=== PATIENT | female | born 1985 | race Two or more races ===

== ENCOUNTER 2016-10-30 08:21 | Emergency (ER) | payer MEDICAID ==
[~2016-10-30] VITALS: Ht 157.5 cm; Wt 76.2 kg
[~2016-10-30 08:21] MED LIST: METF500T PO
[2016-10-30 09:35] VITALS: BP 128/71
== END 2016-10-30 10:34 | disposition home or self-care (01) ==
LOC: ER 08:21
DX: N73.9 Female pelvic inflammatory disease, unspecified (principal); J45.909 Unspecified asthma, uncomplicated; E11.9 Type 2 diabetes mellitus without complications; Z87.442 Personal history of urinary calculi; Z90.49 Acquired absence of other specified parts of digestive tract; Z98.890 Other specified postprocedural states; Z90.89 Acquired absence of other organs
CPT/HCPCS: 10060

== ENCOUNTER 2016-11-02 09:43 | Emergency (ER) | payer MEDICAID ==
[~2016-11-02] VITALS: Ht 157.5 cm; Wt 76.2 kg
[2016-11-02 10:11] VITALS: BP 129/83
== END 2016-11-02 10:23 | disposition home or self-care (01) ==
LOC: ER 09:43
DX: N73.9 Female pelvic inflammatory disease, unspecified (principal); Z48.01 Encounter for change or removal of surgical wound dressing; J45.909 Unspecified asthma, uncomplicated; E11.9 Type 2 diabetes mellitus without complications; Z79.899 Other long term (current) drug therapy

== ENCOUNTER 2018-07-06 18:57 | Emergency (ER) | payer MEDICAID ==
[~2018-07-06] VITALS: Ht 157.5 cm; Wt 84.4 kg
[2018-07-06 20:13] LABS: Urine Bacteria FEW /hpf (None Seen); Urine Blood Negative /uL (Negative); Urine Specific Gravity 1.006 (1.001-1.035); Urine WBC 3 /hpf (0 - 5)
[2018-07-06 20:14] LABS: Basophils # (auto) 0 uL; Basophils % (auto) 0.3 % (0.0-2.0); Eosinophils # (auto) 0.1 uL; Eosinophils % (auto) 1.2 % (0.0-7.0); Hemoglobin 13.3 g/dL (12.2-16.2); Lymphocytes # (auto) 1.6 uL; Lymphocytes % (auto) 15.8 % (10.0-50.0); Mean Corpuscular Hgb Conc. 34.2 g/dL (32.0-36.0); Mean Corpuscular Volume 87.9 fL (80.0-100.0); Monocytes # (auto) 0.4 uL; Monocytes % (auto) 3.9 % (0.0-12.0); Neutrophils # (auto) 7.8 uL; Neutrophils % (auto) 78.8 % (37.0-80.0); Platelet Count (auto) 328 10^3/uL (140-450); Red Blood Cells 4.44 10^6/uL (4.0-5.20); Red Cell Distribution Width 13.6 % (11.8-14.3); White Blood Cell 9.9 10^3/uL (4.4-10.8)
[2018-07-06 20:20] LABS: Albumin 3.7 g/dL (3.4-5.0); BUN/Creatinine Ratio 12.7; Calcium 9.2 mg/dL (8.5-10.1); Potassium 3.5 mmol/L (3.5-5.1)
[2018-07-06 20:23] LABS: Bilirubin, Total 0.3 mg/dL (0.2-1.0); Total Protein 8.7 g/dL (6.4-8.2)
[2018-07-07] MEDS ORDERED: CEPHALEXIN 250 MG CAP PO ONE (01:45)
[2018-07-07 02:05] VITALS: BP 115/62
== END 2018-07-07 04:40 | disposition home or self-care (01) ==
LOC: ER 18:57
DX: O99.341 Other mental disorders complicating pregnancy, first trimester (principal); O26.891 Other specified pregnancy related conditions, first trimester; F41.9 Anxiety disorder, unspecified; J45.909 Unspecified asthma, uncomplicated; O24.911 Unspecified diabetes mellitus in pregnancy, first trimester; Z3A.09 9 weeks gestation of pregnancy; Z90.49 Acquired absence of other specified parts of digestive tract
CPT/HCPCS: 36415; 76801; 76817; 80053; 81001; 81025; 84702; 85025

== ENCOUNTER → 2018-07-13 | Outpatient (CLI) | payer MEDICAID ==
[2018-07-13 13:51] LABS: Basophils # (auto) 0 uL; Basophils % (auto) 0.4 % (0.0-2.0); Eosinophils # (auto) 0.1 uL; Hematocrit 34.8 % (36.0-46.0); Hemoglobin 11.9 g/dL (12.2-16.2); Lymphocytes % (auto) 33.9 % (10.0-50.0); Mean Corpuscular Hemoglobin 30.2 pg (28.0-32.0); Mean Corpuscular Hgb Conc. 34.2 g/dL (32.0-36.0); Mean Corpuscular Volume 88.4 fL (80.0-100.0); Monocytes # (auto) 0.3 uL; Monocytes % (auto) 4.7 % (0.0-12.0); Neutrophils # (auto) 3.4 uL; Platelet Count (auto) 319 10^3/uL (140-450); Red Blood Cells 3.93 10^6/uL (4.0-5.20); Red Cell Distribution Width 13.6 % (11.8-14.3); White Blood Cell 5.8 10^3/uL (4.4-10.8)
[2018-07-13 14:18] LABS: Alcohol, Urine < 3.0 mg/dL (0-5); Amphetamine Screen, Urine NEGATIVE (NEGATIVE); Barbiturate Scree,Urine NEGATIVE (NEGATIVE); Benzodiazephine Screen, Urine NEGATIVE (NEGATIVE); Cannabinoid Screen, Urine NEGATIVE (NEGATIVE); Cocaine Screen, Urine NEGATIVE (NEGATIVE); Opiate Scree,Urine NEGATIVE (NEGATIVE); Phencyclidine Screen, Urine NEGATIVE (NEGATIVE)
[2018-07-13 14:33] LABS: RUBELLA Positive
== END | disposition home or self-care (01) ==
LOC: LAB 11:16
PROVIDERS: ATTEND Specialist
DX: O99.810 Abnormal glucose complicating pregnancy (principal); Z20.2 Contact with and (suspected) exposure to infections with a predominantly sexual mode of transmission; Z3A.11 11 weeks gestation of pregnancy
CPT/HCPCS: 36415; 80307; 82951; 83036; 85025; 86703; 86762; 86850; 86900; 86901; 87086; 87340

== ENCOUNTER → 2018-07-27 | Outpatient (CLI) | payer MEDICAID | END | disposition home or self-care (01) | LOC: LAB 12:57 | PROVIDERS: ATTEND Specialist | DX: O10.911 Unspecified pre-existing hypertension complicating pregnancy, first trimester (principal); Z3A.13 13 weeks gestation of pregnancy | CPT/HCPCS: 36415; 82565 ==

== ENCOUNTER → 2018-09-27 | Outpatient (CLI) | payer MEDICAID | END | disposition home or self-care (01) | LOC: LAB 10:32 | PROVIDERS: ATTEND Specialist | DX: O99.810 Abnormal glucose complicating pregnancy (principal); Z3A.21 21 weeks gestation of pregnancy | CPT/HCPCS: 36415; 83036 ==

== ENCOUNTER → 2018-10-24 | Outpatient (CLI) | payer MEDICAID ==
[2018-10-24 11:34] LABS: Basophils # (auto) 0 uL; Basophils % (auto) 0.3 % (0.0-2.0); Eosinophils # (auto) 0.1 uL; Eosinophils % (auto) 0.8 % (0.0-7.0); Hematocrit 36.1 % (36.0-46.0); Hemoglobin 12.4 g/dL (12.2-16.2); Lymphocytes % (auto) 26.4 % (10.0-50.0); Mean Corpuscular Hemoglobin 30.4 pg (28.0-32.0); Mean Corpuscular Hgb Conc. 34.4 g/dL (32.0-36.0); Mean Corpuscular Volume 88.4 fL (80.0-100.0); Monocytes # (auto) 0.3 uL; Monocytes % (auto) 4.3 % (0.0-12.0); Neutrophils # (auto) 5.1 uL; Neutrophils % (auto) 68.2 % (37.0-80.0); Platelet Count (auto) 297 10^3/uL (140-450); Red Blood Cells 4.08 10^6/uL (4.0-5.20); Red Cell Distribution Width 13.6 % (11.8-14.3); White Blood Cell 7.5 10^3/uL (4.4-10.8)
== END | disposition home or self-care (01) ==
LOC: LAB 11:06
PROVIDERS: ATTEND Specialist
DX: Z34.82 Encounter for supervision of other normal pregnancy, second trimester (principal); Z3A.24 24 weeks gestation of pregnancy
CPT/HCPCS: 36415; 85025

== ENCOUNTER → 2018-11-14 | Outpatient (CLI) | payer MEDICAID | END | disposition home or self-care (01) | LOC: LAB 10:52 | PROVIDERS: ATTEND Specialist | DX: Z34.83 Encounter for supervision of other normal pregnancy, third trimester (principal); Z3A.28 28 weeks gestation of pregnancy | CPT/HCPCS: 36415; 83036 ==

== ENCOUNTER 2018-11-30 10:10 | Observation (INO) | payer MEDICAID | END 2018-11-30 12:37 | disposition home or self-care (01) | DRG 566 | LOC: LDRP 10:10 | PROVIDERS: ADMIT Specialist; ATTEND Specialist | DX: O24.419 Gestational diabetes mellitus in pregnancy, unspecified control (principal); Z3A.30 30 weeks gestation of pregnancy | CPT/HCPCS: 59025; 76818; 81002; G0378 ==

== ENCOUNTER 2018-12-05 16:20 | Observation (INO) | payer MEDICAID ==
[2018-12-05] MEDS ORDERED: PREN-96 PO (17:35)
[2018-12-05] MEDS ORDERED: GLYB5TAB8 PO (17:35)
== END 2018-12-05 18:35 | disposition home or self-care (01) | DRG 566 ==
LOC: LDRP 16:20
PROVIDERS: ADMIT Specialist; ATTEND Specialist
DX: O24.419 Gestational diabetes mellitus in pregnancy, unspecified control (principal); Z3A.31 31 weeks gestation of pregnancy
CPT/HCPCS: 59025; 76818; 81002; 82948; 82962; G0378

== ENCOUNTER 2018-12-08 11:28 | Observation (INO) | payer MEDICAID ==
[~2018-12-08 11:28] MED LIST changes: +GLYB5TAB8 PO; -METF500T PO; +PREN-96 PO
[2018-12-08] MEDS ORDERED: TERBUTALINE SULFATE 1 MG/ML 1ML VIAL SC ONE (12:45)
[2018-12-08] MEDS ORDERED: NIFEdipine 10 MG CAP PO ONE (13:00)
== END 2018-12-08 15:05 | disposition home or self-care (01) | DRG 566 ==
LOC: LDRP 11:28
PROVIDERS: ADMIT Obstetrics & Gynecology; ATTEND Obstetrics & Gynecology
DX: O24.419 Gestational diabetes mellitus in pregnancy, unspecified control (principal); O62.9 Abnormality of forces of labor, unspecified; Z3A.31 31 weeks gestation of pregnancy
CPT/HCPCS: 59025; 76818; 81002; 82948; 82962; G0378

== ENCOUNTER 2018-12-12 15:52 | Observation (INO) | payer MEDICAID | END 2018-12-12 18:30 | disposition still patient (30) | DRG 566 | LOC: LDRP 15:52 | PROVIDERS: ADMIT Specialist; ATTEND Specialist | DX: O24.419 Gestational diabetes mellitus in pregnancy, unspecified control (principal); J45.909 Unspecified asthma, uncomplicated; O99.513 Diseases of the respiratory system complicating pregnancy, third trimester; Z3A.32 32 weeks gestation of pregnancy | CPT/HCPCS: 59025; 76818; 81002; 82948; 82962; G0378 ==

== ENCOUNTER 2018-12-15 10:46 | Observation (INO) | payer MEDICAID | END 2018-12-15 12:35 | disposition home or self-care (01) | DRG 566 | LOC: LDRP 10:46 | PROVIDERS: ADMIT Specialist; ATTEND Specialist | DX: O24.419 Gestational diabetes mellitus in pregnancy, unspecified control (principal); Z3A.32 32 weeks gestation of pregnancy | CPT/HCPCS: 59025; 76818; 81002; 82948; 82962; G0378 ==

== ENCOUNTER 2018-12-19 15:45 | Observation (INO) | payer MEDICAID | END 2018-12-19 17:20 | disposition home or self-care (01) | DRG 566 | LOC: LDRP 15:45 | PROVIDERS: ADMIT Obstetrics & Gynecology; ATTEND Obstetrics & Gynecology | DX: O24.410 Gestational diabetes mellitus in pregnancy, diet controlled (principal); O60.03 Preterm labor without delivery, third trimester; O26.893 Other specified pregnancy related conditions, third trimester; N89.8 Other specified noninflammatory disorders of vagina; Z3A.33 33 weeks gestation of pregnancy | CPT/HCPCS: 59025; 76818; 81002; 82948; 82962; G0378 ==

== ENCOUNTER 2018-12-21 15:50 | Observation (INO) | payer MEDICAID | END 2018-12-21 17:35 | disposition home or self-care (01) | DRG 566 | LOC: LDRP 15:50 | PROVIDERS: ADMIT Obstetrics & Gynecology; ATTEND Obstetrics & Gynecology | DX: O24.419 Gestational diabetes mellitus in pregnancy, unspecified control (principal); Z3A.33 33 weeks gestation of pregnancy | CPT/HCPCS: 59025; 76818; 81002; 82948; 82962; G0378 ==

== ENCOUNTER 2018-12-26 11:22 | Observation (INO) | payer MEDICAID | END 2018-12-26 13:10 | disposition home or self-care (01) | DRG 566 | LOC: LDRP 11:22 | PROVIDERS: ADMIT Obstetrics & Gynecology; ATTEND Obstetrics & Gynecology | DX: O24.419 Gestational diabetes mellitus in pregnancy, unspecified control (principal); Z3A.34 34 weeks gestation of pregnancy | CPT/HCPCS: 59025; 76818; 81002; 82948; G0378 ==

== ENCOUNTER 2018-12-28 15:50 | Observation (INO) | payer MEDICAID ==
[2018-12-29] MEDS ORDERED: NIF10C GT (11:48)
[2018-12-30] MEDS ORDERED: LABE200T18 PO (15:09)
== END 2018-12-28 17:45 | disposition home or self-care (01) | DRG 566 ==
LOC: LDRP 15:50
PROVIDERS: ADMIT Obstetrics & Gynecology; ATTEND Obstetrics & Gynecology
DX: O24.419 Gestational diabetes mellitus in pregnancy, unspecified control (principal); Z3A.34 34 weeks gestation of pregnancy
CPT/HCPCS: 59025; 76818; 81002; 82962; G0378

== ENCOUNTER 2018-12-29 10:05 | Observation (INO) | payer MEDICAID ==
[~2018-12-29] VITALS: Ht 157.5 cm; Wt 81.6 kg
[2018-12-29] MEDS ORDERED: BETAMETHASONE ACET (6MG/ML) 5ML VIAL IM ONE (11:15)
[2018-12-29] MEDS ORDERED: NIF10C GT (11:48)
[2018-12-29 12:02] LABS: Basophils # (auto) 0 uL; Basophils % (auto) 0.3 % (0.0-2.0); Eosinophils # (auto) 0 uL; Eosinophils % (auto) 0.6 % (0.0-7.0); Hematocrit 37.7 % (36.0-46.0); Hemoglobin 12.8 g/dL (12.2-16.2); Lymphocytes # (auto) 2.8 uL; Lymphocytes % (auto) 39.9 % (10.0-50.0); Mean Corpuscular Hemoglobin 30.2 pg (28.0-32.0); Mean Corpuscular Hgb Conc. 33.8 g/dL (32.0-36.0); Mean Corpuscular Volume 89.3 fL (80.0-100.0); Monocytes # (auto) 0.3 uL; Monocytes % (auto) 4.9 % (0.0-12.0); Neutrophils # (auto) 3.8 uL; Neutrophils % (auto) 54.3 % (37.0-80.0); Nucleated Red Blood Cells % 0.1 %; Platelet Count (auto) 218 10^3/uL (140-450); Red Blood Cells 4.22 10^6/uL (4.0-5.20); Red Cell Distribution Width 14.2 % (11.8-14.3)
[2018-12-29 12:11] LABS: INR 0.81 (0.9-1.15); Partial Thromboplastin Time 26.1 sec (23.78-33.04); Prothrombin Time 8.8 sec (9.27-12.13)
[2018-12-29 13:07] LABS: Alanine Aminotransferase 17 U/L (13-56); Albumin 2.7 g/dL (3.4-5.0); Alkaline Phosphatase 148 U/L (45-117); Anion Gap 8 (5-15); Aspartate Aminotransferase 18 U/L (15-37); BUN/Creatinine Ratio 18.1; Bilirubin, Total 0.1 mg/dL (0.2-1.0); Blood Urea Nitrogen 13 mg/dL (7-18); Calcium 9.4 mg/dL (8.5-10.1); Carbon Dioxide 24 mmol/L (21-32); Chloride 106 mmol/L (98-107); GFR African American 122 mL/min; GFR Non-African American 100 mL/min; Glucose 74 mg/dL (74-106); Sodium 138 mmol/L (136-145); Total Protein 7.5 g/dL (6.4-8.2)
[2018-12-29 13:08] LABS: Uric Acid 6.2 mg/dL (2.6-6.0)
[2018-12-30] MEDS ORDERED: LABE200T18 PO (15:09)
== END 2018-12-29 13:30 | disposition home or self-care (01) | DRG 566 ==
LOC: LDRP 10:05
PROVIDERS: ADMIT Specialist; ATTEND Specialist
DX: O24.419 Gestational diabetes mellitus in pregnancy, unspecified control (principal); O36.8130 Decreased fetal movements, third trimester, not applicable or unspecified; Z3A.34 34 weeks gestation of pregnancy
CPT/HCPCS: 36415; 59025; 76805; 80053; 81002; 82962; 84550; 85025; 85610; 85730; 96372; G0378; J0702

== ENCOUNTER 2018-12-30 14:00 | Inpatient (IN) | payer MEDICAID | END 2018-12-30 16:25 | disposition home or self-care (01) | LOC: LDRP 14:00 ==

== ENCOUNTER 2018-12-31 07:00 | Observation (INO) | payer MEDICAID ==
[~2018-12-31] VITALS: Ht 30.5 cm; Wt 0.5 kg
[~2018-12-31 07:00] MED LIST changes: +LABE200T18 PO; +NIF10C GT
[2018-12-31] MEDS ORDERED: InsuLIN REG 1unit/0.01ml Soln (100units/ml) SC ONE (08:00)
[2018-12-31 08:03] LABS: Urine Bacteria NONE SEEN /hpf (None Seen); Urine Blood Negative /uL (Negative); Urine Specific Gravity 1.017 (1.001-1.035); Urine WBC 4 /hpf (0 - 5)
[2018-12-31 08:04] LABS: Basophils # (auto) 0 uL; Eosinophils # (auto) 0 uL; Hematocrit 35.7 % (36.0-46.0); Hemoglobin 12.1 g/dL (12.2-16.2); Lymphocytes # (auto) 1.7 uL; Lymphocytes % (auto) 22.2 % (10.0-50.0); Mean Corpuscular Hemoglobin 30.8 pg (28.0-32.0); Mean Corpuscular Hgb Conc. 34.1 g/dL (32.0-36.0); Mean Corpuscular Volume 90.3 fL (80.0-100.0); Monocytes # (auto) 0.3 uL; Monocytes % (auto) 3.5 % (0.0-12.0); Neutrophils # (auto) 5.6 uL; Neutrophils % (auto) 74.3 % (37.0-80.0); Nucleated Red Blood Cells % 0.2 %; Platelet Count (auto) 205 10^3/uL (140-450); Red Blood Cells 3.95 10^6/uL (4.0-5.20); Red Cell Distribution Width 14.6 % (11.8-14.3); White Blood Cell 7.5 10^3/uL (4.4-10.8)
[2018-12-31 08:13] LABS: Albumin 2.7 g/dL (3.4-5.0); Calcium 9.2 mg/dL (8.5-10.1); Potassium 4.2 mmol/L (3.5-5.1); Uric Acid 6.6 mg/dL (2.6-6.0)
[2018-12-31 08:14] LABS: INR 0.84 (0.9-1.15); Prothrombin Time 9.1 sec (9.27-12.13)
[2018-12-31 08:17] LABS: BUN/Creatinine Ratio 24.4; Bilirubin, Total 0.2 mg/dL (0.2-1.0); Total Protein 7.5 g/dL (6.4-8.2)
== END 2018-12-31 11:10 | disposition home or self-care (01) | DRG 566 ==
LOC: LDRP 07:00
PROVIDERS: ADMIT Specialist; ATTEND Specialist
DX: O24.419 Gestational diabetes mellitus in pregnancy, unspecified control (principal); O13.3 Gestational [pregnancy-induced] hypertension without significant proteinuria, third trimester; Z3A.35 35 weeks gestation of pregnancy
CPT/HCPCS: 36415; 59025; 76818; 80053; 81001; 81002; 82962; 84550; 85025; 85610; 85730; 96372; G0378; J1815

== ENCOUNTER 2021-04-12 21:41 | Emergency (ER) | payer MEDICAID ==
[~2021-04-12] VITALS: Ht 157.5 cm; Wt 80.7 kg
[~2021-04-12 21:41] MED LIST changes: -LABE200T18 PO; +LABE200T7 PO
[2021-04-12 21:42] VITALS: BP 143/92
== END 2021-04-13 00:56 | disposition home or self-care (01) ==
LOC: ER 21:41
DX: N75.0 Cyst of Bartholin's gland (principal); N76.4 Abscess of vulva; E66.9 Obesity, unspecified; Z68.32 Body mass index [BMI] 32.0-32.9, adult; E11.9 Type 2 diabetes mellitus without complications; J45.909 Unspecified asthma, uncomplicated; Z90.49 Acquired absence of other specified parts of digestive tract; Z90.89 Acquired absence of other organs; Z79.899 Other long term (current) drug therapy
CPT/HCPCS: 56420

== ENCOUNTER 2021-12-10 07:57 | Emergency (ER) | payer MEDICAID ==
[~2021-12-10] VITALS: Ht 157.5 cm; Wt 78.0 kg
[2021-12-10 08:02] VITALS: BP 145/93
[2021-12-10] MEDS ORDERED: KETOROLAC TROMETH 60MG/2ML VIAL IM ONE (08:15)
[2021-12-10] MEDS ORDERED: METH750T22 PO (08:54)
[2021-12-10] MEDS ORDERED: IBUP800T27 PO (08:54)
== END 2021-12-10 08:59 | disposition home or self-care (01) ==
LOC: ER 07:57
DX: S29.011A Strain of muscle and tendon of front wall of thorax, initial encounter (principal); J45.909 Unspecified asthma, uncomplicated; E11.9 Type 2 diabetes mellitus without complications; Z90.49 Acquired absence of other specified parts of digestive tract; X50.1XXA Overexertion from prolonged static or awkward postures, initial encounter; Y93.39 Activity, other involving climbing, rappelling and jumping off; Y92.89 Other specified places as the place of occurrence of the external cause; Y99.8 Other external cause status
CPT/HCPCS: 71101; 96372; 99283; J1885

== ENCOUNTER 2023-04-27 01:35 | Emergency (ER) | payer MEDICAID ==
[~2023-04-27] VITALS: Ht 157.5 cm; Wt 84.0 kg
[~2023-04-27 01:35] MED LIST changes: +IBUP-1456 PO; +METH-1182 PO
[2023-04-27] MEDS ORDERED: ERY05OO OP (04:47)
[2023-04-27 05:17] VITALS: BP 112/88; PULSE 97; RESP 18; TEMP 98.1; O2SAT 97
== END 2023-04-27 05:23 | disposition home or self-care (01) ==
LOC: ER 01:35
DX: H10.33 Unspecified acute conjunctivitis, bilateral (principal); J45.909 Unspecified asthma, uncomplicated; E11.9 Type 2 diabetes mellitus without complications; F41.9 Anxiety disorder, unspecified; Z90.49 Acquired absence of other specified parts of digestive tract

== ENCOUNTER 2023-08-30 09:56 | Emergency (ER) | payer MEDICAID ==
[~2023-08-30] VITALS: Ht 157.5 cm; Wt 82.3 kg
[~2023-08-30 09:56] MED LIST changes: +ERY05OO OP
[2023-08-30 13:01] VITALS: BP 130/85; PULSE 104; RESP 16; TEMP 98.6; O2SAT 97
[2023-08-30] MEDS ORDERED: CEPH500C PO (13:32)
== END 2023-08-30 14:51 | disposition home or self-care (01) ==
LOC: ER 09:56
DX: N76.4 Abscess of vulva (principal); J45.909 Unspecified asthma, uncomplicated; E11.9 Type 2 diabetes mellitus without complications; Z90.49 Acquired absence of other specified parts of digestive tract

== ENCOUNTER 2023-10-29 20:10 | Emergency (ER) | payer MEDICAID ==
[~2023-10-29] VITALS: Ht 157.5 cm; Wt 83.7 kg
[~2023-10-29 20:10] MED LIST changes: +CEPH500C PO
[2023-10-29 22:33] VITALS: BP 148/90; PULSE 100; RESP 18; TEMP 98.8; O2SAT 99
== END 2023-10-29 22:35 | disposition home or self-care (01) ==
LOC: ER 20:10
DX: H11.31 Conjunctival hemorrhage, right eye (principal); J45.909 Unspecified asthma, uncomplicated; F41.9 Anxiety disorder, unspecified; E11.9 Type 2 diabetes mellitus without complications; K80.20 Calculus of gallbladder without cholecystitis without obstruction; Z98.890 Other specified postprocedural states; Z79.899 Other long term (current) drug therapy
CPT/HCPCS: 70450

== ENCOUNTER 2024-07-23 16:30 | Emergency (ER) | payer MEDICAID ==
[~2024-07-23] VITALS: Ht 157.5 cm; Wt 82.2 kg
[~2024-07-23 16:30] MED LIST changes: +LABE200T33 PO; -LABE200T7 PO; -NIF10C GT; +NIFE10CA52 GT
[2024-07-23] MEDS: FLUORESCEIN SOD OPTH TEST STRIP EACHEYE ONE (17:21)
[2024-07-23] MEDS: TETRACAINE HCL 0.5% OPTH(EYE) SOLN 4ML EACHEYE ONE (17:21)
[2024-07-23] MEDS ORDERED: ERY05OO OP (17:28)
[2024-07-23 17:34] VITALS: BP 165/88; PULSE 95; RESP 15; TEMP 98.5; O2SAT 98
== END 2024-07-23 17:33 | disposition home or self-care (01) ==
LOC: ER 16:34
DX: S05.02XA Injury of conjunctiva and corneal abrasion without foreign body, left eye, initial encounter (principal); J45.909 Unspecified asthma, uncomplicated; E11.9 Type 2 diabetes mellitus without complications; Z79.899 Other long term (current) drug therapy; Z90.49 Acquired absence of other specified parts of digestive tract; Z90.710 Acquired absence of both cervix and uterus; Z98.890 Other specified postprocedural states; X58.XXXA Exposure to other specified factors, initial encounter; Y93.89 Activity, other specified; Y92.89 Other specified places as the place of occurrence of the external cause; Y99.8 Other external cause status

== ENCOUNTER 2025-06-27 18:53 | Emergency (ER) | payer MEDICAID ==
[~2025-06-27] VITALS: Ht 157.5 cm; Wt 84.0 kg
[2025-06-27 18:54] VITALS: TEMP 98.1
[2025-06-27 18:57] VITALS: BP 150/99; PULSE 98; O2SAT 99
[2025-06-27] MEDS: TETRACAINE HCL 0.5% OPTH(EYE) SOLN 4ML LEFTEYE ONE (19:15)
--- NOTE | 2025-06-27 19:23 | ED.PDOC ---
Eye-HPI HPI Comments This patient is a pleasant but obese 39-year-old female who came to ER for eye problems. Patient does have history of diabetes. States she was at home earlier, when she felt a popping sensation on the medial aspect of her left eye. Noted reddish discoloration of her left and right eyes. Denies any pain. Denies any blurring of vision. Denies any recent trauma. Vital signs were stable. Patient states the pain is reduced significantly at time of evaluation. Chief Complaint: Eye Problem Time Seen by MD: 19:22 Primary Care Provider: SUMAN Reviewed Notes: Nurses Notes Allergies: Coded Allergies: NO KNOWN ALLERGIES (Unverified , 09/16/15) Home Meds Active Scripts Erythromycin (Erythromycin) 5 Mg/Gm Oin, 1 APPLIC OP TID for 10 Days, #5 GRAMS 0 Refills Prov:ZULEIKA SINHA BREAD WRAPPER OPERATOR 07/23/24 Cephalexin Monohydrate (Cephalexin) 500 Mg Cap, 500 MG PO QID for 5 Days, #20 CAP Prov:ROCK ORTIZ PAC 10/07/23 Cephalexin Monohydrate (Cephalexin) 500 Mg Cap, 500 MG PO QID for 5 Days, #20 CAP 0 Refills Prov:ZULEIKA SINHA BREAD WRAPPER OPERATOR 08/30/23 Erythromycin (Erythromycin) 5 Mg/Gm Oin, 1 MG OP 6XD for 7 Days, #1 OIN 0 Refills Prov:JOSE ANGEL DERAS 04/27/23 Methocarbamol (Methocarbamol) 750 Mg Tab, 750 MG PO QHSP PRN, #20 TAB Prov:BRITTNEY THOMAS 12/10/21 Ibuprofen (Ibuprofen) 800 Mg Tab, 800 MG PO Q8HP PRN for 10 Days, #30 TAB Prov:BRITTNEY THOMAS 12/10/21 Reported Medications Labetalol Hcl (Labetalol Hcl) 200 Mg Tab, 200 MG PO BID for 30 Days, MG 12/30/18 Nifedipine (PROCARDIA CAPSULE) 10 Mg Cp, 10 MG GT Q4HR, CP 12/29/18 Glyburide (Glyburide) 5 Mg Tab, 0.5 TAB PO HS for 30 Days, MG 12/05/18 Vit W/ Ferrous Fumara ( One Daily) Daily Tab, 1 TAB PO EOD, #90 TAB 3 Refills 12/05/18 Information Source: Patient Mode of Arrival: Ambulatory Timing: Hours Duration: Since onset, Hours Quality: Red Eye Location: Left Conjunctiva: Injection Onset: Spontaneous Past Medical History PAST MEDICAL HISTORY: Anxiety, Asthma, DM, Gallstones, High Lipids Surgical History: Cholecystectomy, , Tonsillectomy STONECUTTER ASSISTANT History: No Pertinent STONECUTTER ASSISTANT History Family History Family History: Reviewed,noncontributory to illness Social History Smoker: Non-Smoker Alcohol: Denies ETOH Use Drugs: Denies Drug Use Lives In: Home Constitutional: denies: chills, diaphoresis, fatigue, fever, malaise, sweats, weakness, others EENTM: reports: eye pain (left), eye redness; denies: blurred vision, double vision, ear bleeding, ear discharge, ear drainage, ear pain, ear ringing, he aring loss, mouth pain, mouth swelling, nasal discharge, nose bleeding, nose congestion, nose pain, photophobia, tearing, throat pain, throat swelling, voice changes, others Respiratory: denies: cough, hemoptysis, orthopnea, SOB at rest, shortness of breath, SOB with excertion, stridor, wheezing, others Cardiovascular: denies: chest pain, dizzy spells, diaphoresis, Dyspnea on exertion, edema, irregular heart beat, left arm pain, lightheadedness, palpitations, PND, syncope, others Gastrointestinal: denies: abdomen distended, abdominal pain, blood streaked bowels, constipated, diarrhea, dysphagia, difficulty swallowing, hematemesis, melena, nausea, poor appetite, poor fluid intake, rectal bleeding, rectal pain, vomiting, others Genitourinary: denies: abnormal vagina bleeding, burning, dyspareunia, dysuria, flank pain, frequency, hematuria, incontinence, pain, , vagina discharge, urgency, others Neurological: denies: dizziness, fainting, headache, left sided numbness, left sided weakness, numbness, paresthesia, pre-existing deficit, right sided numbness, right sided weakness, seizure, speech problems, tingling, tremors, weakness, others Musculoskeletal: denies: back pain, gout, joint pain, joint swelling, muscle pain, muscle stiffness, neck pain, others Integumetry: denies: bruises, change in color, change in hair/nails, dryness, laceration, lesions, lumps, rash, wounds, others Allergic/Immunocompromised: denies: Difficulty Healing, Frequent Infections, Hives, Itching, others Hematologic/Lymphatic: denies: anemia, blood clots, easy bleeding, easy bruising, swollen glands, others Endocrine: denies: excessive hunger, excessive sweating, excessive thirst, excessive urination, flushing, intolerance to cold, intolerance to heat, unexplained weight gain, unexplained weight loss, others Psychiatric: denies: anxiety, bipolar disorder, depression, hopeless, panic disorder, schizophrenia, sleepless, suicidal, others Physical Exam General Appearance: Mild Distress (Mild distress at time of evaluation.), Normal HEENT: Pharynx Normal, TMs Normal, Other (Medial aspect of left eye reveals mild injection. Fluorescein stain was unremarkable for any corneal abrasion. No signs of penetrating wounds.) Neck: Full Range of Motion, Non-Tender, Normal, Normal Inspection Respiratory: Chest Non-Tender, Lungs Clear, No Accessory Muscle Use, No Respiratory Distress, Normal Breath Sounds Cardiovascular: No Edema, No JVD, No Murmur, No Gallop, Normal Peripheral Pulses, Regular Rate/Rhythm Breast Exam: Deferred Gastrointestinal: No Organomegaly, Non Tender, No Pulsatile Mass, Normal Bowel Sounds, Soft Genitalia: Deferred Pelvic: Deferred Rectal: Deferred Extremities: No calf tenderness, Normal capillary refill, Normal inspection, Normal range of motion, Non-tender, No pedal edema Musculoskeletal : Apperance: Normal Neurologic: Alert, No Motor Deficits, Normal Affect, Normal Mood, No Sensory Deficits Cerebellar Function: Normal Reflexes: Normal Skin: Dry, Normal Color, Warm Lymphatic: No Adenopathy Was a procedure done? Was a procedure done?: No EENT DIFF Eye: Allergic, Corneal Abrasion, Corneal Ulceration, Foreign Body-Conjunctiva, Subconjunctival Hemorrhag X-Ray, Labs, Meds, VS Vital Signs Date Time Temp Pulse Resp B/P (MAP) Pulse Ox O2 Delivery O2 Flow Rate FiO2 06/27/25 18:57 98 18 150/99 (116) 99 06/27/25 18:54 98.1 93 18 179/102 100 98.1 X-Ray, Labs, Meds, VS Comment Spent time discussing patient's concerns with her. I believe the patient may have had some particle that would into her eye that caused her some discomfort, but that event seems to be resolving. Advised patient utilize antibiotic eyedrops for the next few days to stave off any infective components. Tylenol and or Motrin as needed for pain. Time of 1ST Reevaluation: 19:32 Reevaluation 1ST: Improved Consultation: PCP Patient Education/Counseling: Diagnosis, Treatment Family Education/Counseling: Diagnosis, Treatment, No Family Present SEPSIS Sepsis Screen Date sepsis recognized/suspect: Jun 27, 2025 Time Sepsis recognized/suspect: 1854 Recent Procedure: No On Antibiotic Therapy: No Respiratory Rate >20: No Heart Rate >90: Yes Temp<36 C (96.8 F) or >38.3 C: No SBP <90 or MAP <65 mmHG: No New Acute Mental Status Change: No Is the patient on CPAP, BIPAP,: No Vital Signs Date Time Temp Pulse Resp B/P (MAP) Pulse Ox O2 Delivery O2 Flow Rate FiO2 06/27/25 18:57 98 18 150/99 (116) 99 06/27/25 18:54 98.1 93 18 179/102 100 98.1 Departure 1 Departure Time of Disposition: 19:32 Impression: Primary Impression: Pain, eye, left Disposition: 01 HOME / SELF CARE / HOMELESS Condition: Stable Additional Instructions: Advised patient utilize antibiotic eyedrops for the next few days to stave off any infection. Tylenol and or Motrin as needed for pain. e-Prescriptions Azithromycin (Ophth) (Azasite) 1 % Sarita 2 DROP LEFTEYE BID for 2 Days, #2.5 ML 0 Refills Prov: BETH MIRANDA PAC 06/27/25 Discharged With: Self, Friend Critical Care Note Critical Care Time?: No Stability Stability form required: No Heart Score Heart Score: Heart Score Response (Comments) Value History N/A 0 EKG N/A 0 Age N/A 0 Risk Factors N/A 0 Troponin N/A 0 Total 0 I personally scribed for BETH MIRANDA PAC ([email or web address]) on 06/27/25 at 19:23. Electronically submitted by Keven De Los Santos ([email or web address]). BETH MIRANDA PAC Jun 27, 2025 19:23
[2025-06-27] MEDS ORDERED: AZIT4SOL LEFTEYE (19:33)
[2025-06-27 20:00] VITALS: RESP 18
== END 2025-06-27 20:21 | disposition home or self-care (01) ==
LOC: ER 18:55
DX: H57.12 Ocular pain, left eye (principal); F41.9 Anxiety disorder, unspecified; J45.909 Unspecified asthma, uncomplicated; E11.9 Type 2 diabetes mellitus without complications; E78.5 Hyperlipidemia, unspecified; E66.9 Obesity, unspecified; Z90.89 Acquired absence of other organs; Z90.49 Acquired absence of other specified parts of digestive tract; Z79.899 Other long term (current) drug therapy; Z98.890 Other specified postprocedural states; Z68.33 Body mass index [BMI] 33.0-33.9, adult